=== PATIENT | male | born 2000 | race Caucasian/White ===

== ENCOUNTER 2022-09-16 22:11 | Emergency (ER) | payer BC ==
[2022-09-16] MEDS ORDERED: cefTRIAXone 500 MG Vial IM ONE (23:30)
[2022-09-16] MEDS ORDERED: Doxycycline Monohydrate 100 MG Cap PO ONE (23:31)
[2022-09-16] MEDS ORDERED: CEFTRIAXONE 500 MG IM ONE ×4 (23:52→23:58)
[2022-09-16] MEDS ORDERED: LIDOCAINE 1% IM ONE ×4 (23:52→23:58)
[2022-09-17 01:09] LABS: C. TRACHOMATIS BY PCR NOT DETECTED; N. GONORRHOEAE BY PCR NOT DETECTED
== END 2022-09-17 00:31 | disposition home or self-care (01) ==
LOC: JD.ED 22:11
DX: N45.1 Epididymitis (principal)
CPT/HCPCS: 81003; 87491; 87591; 96372; 99284; A9270; J0696; J3490